=== PATIENT | female | born 1990 | race Two or more races ===

== ENCOUNTER 2016-08-14 17:01 | Emergency (ER) | payer MEDICAID, OTHER ==
[~2016-08-14] VITALS: Ht 154.9 cm; Wt 79.4 kg
[~2016-08-14 17:01] MED LIST: BACTRIM DS TAB1 EAC1 ORAL; BENADRYL25 M3 PO; BENADRYL25 MG PO; IBUPROFEN400 MG ORAL; IBUPROFEN600 MG PO; NKM; NORCO 10-325 T1 EACH ORAL; PENICILLIN V P500 MG PO; VICODIN 5-5001 EACH PO; ZYRTEC10 MG ORAL
[2016-08-14] MEDS ORDERED: PredniSONE 20mg tab ORAL ONE (17:30)
[2016-08-14] MEDS ORDERED: BENADRYL25 MG ORAL (17:48)
[2016-08-14] MEDS ORDERED: PREDNISONE20 MG ORAL (17:48)
[2016-08-14] MEDS ORDERED: KENALOG 0.5% CR15 GM APPLIC (17:48)
[2016-08-14 18:00] VITALS: BP 123/90
--- NOTE | 2016-08-14 20:43 | Emergency Room Report ---
History of Present Illness General Chief Complaint: Allergies Source: Patient Present Illness HPI The patient is a 25-year-old female presenting for possible allergic reaction. She states that she applied a sunscreen yesterday and then began to itch and on the areas that he was applied. She states that she noticed hives in those areas. She took Benadryl which did help. She denies having a reaction like this in the past. She denies any pain and denies shortness of breath. She denies other symptoms including N, V, F, chills Allergies: Coded Allergies: Shrimp (Verified Allergy, Intermediate, Itching, 09/20/12) PENICILLINS (Verified Adverse Reaction, Intermediate, Itching, 05/29/13) FACIAL SWELLING Patient History Past Medical History: see triage record Pertinent Family History: none Last Menstrual Period: 2 years ago Now: No Reviewed Nursing Documentation: PMH: Agreed, PSxH: Agreed Nursing Documentation-PMH Past Medical History: No Stated History Review of Systems All Other Systems: negative except mentioned in HPI Physical Exam Vital Signs Date Time Temp Pulse Resp B/P Pulse Ox O2 Delivery O2 Flow Rate FiO2 08/14/16 17:13 98.1 76 18 123/90 98 Room Air Sp02 EP Interpretation: reviewed, normal General Appearance: no apparent distress, alert, GCS 15, non-toxic Head: normocephalic, atraumatic Eyes: bilateral eye PERRL, bilateral eye normal inspection ENT: hearing grossly normal, normal pharynx, no angioedema, normal voice, uvula midline, moist mucus membranes Neck: full range of motion, supple/symm/no masses Respiratory: chest non-tender, lungs clear, normal breath sounds, no wheezing, speaking full sentences Cardiovascular #1: regular rate, rhythm, no edema Gastrointestinal: normal bowel sounds, non tender, soft, non-distended, no guarding, no rebound Musculoskeletal: back normal, gait/station normal, normal range of motion, non- tender Neurologic: alert, oriented x3, responsive, motor strength/tone normal, sensory intact, normal gait, speech normal Psychiatric: judgement/insight normal, memory normal, mood/affect normal, no suicidal/homicidal ideation Skin: rash - maculopapular rash of the face, neck, bilat arms, upper mid chest , and back Lymphatic: no adenopathy Medical Decision Making PA Attestation Dr. Mayen is my supervising physician. Patient management was discussed with my supervising physician Diagnostic Impression: Primary Impression: Contact dermatitis Qualified Codes: L25.9 - Unspecified contact dermatitis, unspecified cause ER Course The patient is a 25-year-old female presenting for possible allergic reaction Ddx considered include but not limited to insect bite, allergic reaction, contact dermatitis, eczema, cellulitis PE: vitals WNL. NAD No angioedema Lungs CTA bilat maculopapular rash of the face, neck, bilat arms, upper mid chest, and back only. Pt is given prednisone in the ER and will be DC'ed home with prednisone, Benadryl, and triamcinolone. ER precautions given Last Vital Signs Date Time Temp Pulse Resp B/P Pulse Ox O2 Delivery O2 Flow Rate FiO2 08/14/16 18:00 62 16 113/73 98 08/14/16 18:00 98.1 Room Air Status: improved Disposition: HOME, SELF-CARE Condition: Improved Scripts Triamcinolone Acet (Triamcinolone Acetonide) 15 Gm Cream..g. 15 GM APPLIC TID, #15 GM Prov: SEAN ALBARADO P.A. 08/14/16 Prednisone* (PREDNISONE*) 20 Mg Tablet 40 MG ORAL DAILY, #8 TAB Prov: MARTINANSEAN P.A. 08/14/16 Diphenhydramine Hcl* (BENADRYL*) 25 Mg Capsule 25 MG ORAL Q6H Y for Itching, #15 CAP Prov: TERZIANADRIANY P.A. 08/14/16 Referrals[facility] ([facility]P) Patient Instructions: Contact Dermatitis Additional Instructions: I discussed my findings with the patient. All questions and concerns have been answered. Treatment and medication compliance have been addressed. I advised the patient that they need to follow up with PMD in 3-5 days. Return to ED if symptoms worsen, new symptoms arise, or if needed for any reason. Patient verbalized understanding of discharge instructions. SEAN ALBARADO Aug 14, 2016 20:43
[2016-08-15] MEDS ORDERED: KENALOG 0.025%15 GM APPLIC (14:07)
== END 2016-08-14 18:00 | disposition home or self-care (01) ==
LOC: EMR 17:50
DX: L25.9 Unspecified contact dermatitis, unspecified cause (principal); Z88.0 Allergy status to penicillin; Z91.013 Allergy to seafood
CPT/HCPCS: 99284

== ENCOUNTER 2016-12-15 17:19 | Emergency (ER) | payer MEDICAID ==
[~2016-12-15] VITALS: Ht 157.5 cm; Wt 77.1 kg
[~2016-12-15 17:19] MED LIST changes: +BENADRYL25 MG ORAL; +KENALOG 0.025%15 GM APPLIC; +KENALOG 0.5% CR15 GM APPLIC; +PREDNISONE20 MG ORAL
[2016-12-15 17:29] VITALS: BP 105/67
[2016-12-15] MEDS ORDERED: PROMETHAZI6.25 MG/1 ORAL ×2 (17:52→18:37)
[2016-12-15] MEDS ORDERED: AMOXICILLIN500 MG ORAL (17:52)
[2016-12-15 17:55] VITALS: BP 111/71
[2016-12-15] MEDS ORDERED: ZITHROMAX250 MG ORAL ×2 (18:10→18:37)
--- NOTE | 2016-12-15 21:21 | Emergency Room Report ---
History of Present Illness General Chief Complaint: Upper Respiratory Illness Source: Patient Present Illness [facility] The patient is a 26-year-old female presenting for cough, sore throat, nasal congestion, and subjective fevers for the past week. She denies any known sick contacts recent travel. Pain is 8/10 dull ache to the back of the throat and does not radiate. Worse with swallowing. She denies any other symptoms Allergies: Coded Allergies: Shrimp (Verified Allergy, Intermediate, Itching, 09/20/12) PENICILLINS (Verified Adverse Reaction, Intermediate, Itching, 05/29/13) FACIAL SWELLING Patient History Past Medical History: see triage record Pertinent Family History: none Last Menstrual Period: 2 years ago Now: No Reviewed Nursing Documentation: PMH: Agreed, PSxH: Agreed Nursing Documentation-PMH Hx Gastrointestinal Problems: No - [place] Review of Systems All Other Systems: negative except mentioned in HPI Physical Exam Vital Signs Date Time Temp Pulse Resp B/P (MAP) Pulse Ox O2 Delivery O2 Flow Rate FiO2 12/15/16 17:23 97.9 82 16 105/67 98 Room Air Sp02 EP Interpretation: reviewed, normal General Appearance: no apparent distress, alert, GCS 15, non-toxic Head: normocephalic, atraumatic Eyes: bilateral eye normal inspection, bilateral eye PERRL ENT: hearing grossly normal, no angioedema, normal voice, uvula midline, tonsillar swelling, pharyngeal erythema, tonsillar exudate Neck: full range of motion, supple/symm/no masses Respiratory: chest non-tender, lungs clear, normal breath sounds, speaking full sentences Cardiovascular #1: regular rate, rhythm, no edema Musculoskeletal: back normal, gait/station normal, normal range of motion, non- tender Neurologic: alert, oriented x3, responsive, motor strength/tone normal, sensory intact, speech normal Psychiatric: judgement/insight normal, memory normal, mood/affect normal, no suicidal/homicidal ideation Skin: normal color, no rash, warm/dry, well hydrated Lymphatic: adenopathy Medical Decision Making PA Attestation Dr. Ceballos is my supervising physician. Patient management was discussed with my supervising physician Diagnostic Impression: Primary Impression: Pharyngitis, acute Qualified Codes: J02.9 - Acute pharyngitis, unspecified ER Course Pt is a 26 yo F presenting for URI symptoms Differential diagnosis include but not limited to pharyngitis, sinusitis, AOM, bronchitis, PNA Physical exam: Vitals within normal limits. Afebrile. No apparent distress HEENT exam: There is bilateral tonsillar edema, erythema, and exudate. Uvula midline. Moist mucous membranes. There is bilateral cervical lymphadenopathy. Lungs are clear to auscultation bilaterally Skin is warm and dry. No rash The patient will be discharged home with a prescription for azithromycin and is given ER precautions. Patient will followup with primary care Last Vital Signs Date Time Temp Pulse Resp B/P (MAP) Pulse Ox O2 Delivery O2 Flow Rate FiO2 12/15/16 17:55 97.9 86 20 111/71 100 Room Air Status: improved Disposition: HOME, SELF-CARE Condition: Improved Scripts Azithromycin* (ZITHROMAX*) 250 Mg Tablet 250 MG ORAL DAILY, #6 TAB 0 Refills Take two tables once daily for 1 day, then one tablet once daily for 4 days. Prov: SEAN ALBARADO 12/15/16 Promethazine Hcl (PROMETHAZINE HCL*) 6.25 Mg/5 Ml Syrup 5 ML ORAL Q8H, #120 ML 0 Refills Prov: SEAN ALBARADO 12/15/16 Referrals: [facility] (PCP) Patient Instructions: Upper Respiratory Infection, Adult Additional Instructions: I discussed my findings with the patient. All questions and concerns have been answered. Treatment and medication compliance have been addressed. I advised the patient that they need to follow up with PMD in 3-5 days. Return to ED if pain remains or worsens, cough worsens or remains, you notice blood in your sputum, you notice wheezing, you experience a fever, or if needed for any reason. Patient verbalized understanding of discharge instructions. SEAN ALBARADO Dec 15, 2016 21:21
== END 2016-12-15 17:55 | disposition home or self-care (01) ==
LOC: EMR 17:50
DX: J02.9 Acute pharyngitis, unspecified (principal); Z91.013 Allergy to seafood; Z88.0 Allergy status to penicillin
CPT/HCPCS: 99283

== ENCOUNTER 2017-02-07 15:25 | Emergency (ER) | payer MEDICAID ==
[~2017-02-07] VITALS: Ht 157.5 cm; Wt 76.2 kg
[~2017-02-07 15:25] MED LIST changes: +AMOXICILLIN500 MG ORAL; +PROMETHAZI6.25 MG/1 ORAL; +ZITHROMAX250 MG ORAL
[2017-02-07] MEDS ORDERED: PREDNISONE20 MG ORAL (17:10)
[2017-02-07] MEDS ORDERED: PROAIR HFA8.5 GM INH (17:10)
[2017-02-07] MEDS ORDERED: BENADRYL25 MG ORAL (17:10)
[2017-02-07 17:52] VITALS: BP 131/82
--- NOTE | 2017-02-07 21:52 | Emergency Room Report ---
History of Present Illness General Chief Complaint: Allergic Reaction Source: Patient Present Illness HPI The patient is a 26-year-old female presenting for possible allergic reaction. She states that she has an allergy to shrimp and penicillin. She states that she had a seafood soup 2 days prior and is unsure if it had shrimp products. She began to develop itching as well as feelings of shortness of breath. She states that she has an EpiPen at home but did not use it. Symptoms have since improved. She took Zyrtec at home. She denies any other symptoms including nausea, vomiting, fever, chills, difficulty breathing, difficulty swallowing, facial swelling, diarrhea, chest pain or any other symptoms Allergies: Coded Allergies: Shrimp (Verified Allergy, Intermediate, Itching, 09/20/12) PENICILLINS (Verified Adverse Reaction, Intermediate, Itching, 05/29/13) FACIAL SWELLING Patient History Past Medical History: see triage record Pertinent Family History: none Last Menstrual Period: Two years ago "adenoma" W/U in progress Now: No Reviewed Nursing Documentation: PMH: Agreed, PSxH: Agreed Nursing Documentation-PM Past Medical History: No Stated History Hx Gastrointestinal Problems: No - [place] Review of Systems All Other Systems: negative except mentioned in HPI Physical Exam Vital Signs Date Time Temp Pulse Resp B/P (MAP) Pulse Ox O2 Delivery O2 Flow Rate FiO2 02/07/17 15:36 98.1 86 16 132/90 99 Room Air Sp02 EP Interpretation: reviewed, normal General Appearance: no apparent distress, alert, GCS 15, non-toxic Head: normocephalic, atraumatic Eyes: bilateral eye normal inspection, bilateral eye PERRL ENT: hearing grossly normal, normal pharynx, no angioedema, normal voice Neck: full range of motion, supple/symm/no masses Respiratory: chest non-tender, normal breath sounds, no respiratory distress, no accessory muscle use, speaking full sentences, wheezing - bilat Cardiovascular #1: regular rate, rhythm, no edema Gastrointestinal: normal bowel sounds, non tender, soft, non-distended, no guarding, no rebound Musculoskeletal: back normal, gait/station normal, normal range of motion, non- tender Neurologic: alert, oriented x3, responsive, motor strength/tone normal, sensory intact, speech normal Psychiatric: judgement/insight normal, memory normal, mood/affect normal, no suicidal/homicidal ideation Skin: normal color, no rash, warm/dry, well hydrated Lymphatic: no adenopathy Medical Decision Making PA Attestation Dr. Ceballos is my supervising physician. Patient management was discussed with my supervising physician Diagnostic Impression: Primary Impression: Allergic reaction Qualified Codes: T78.40XA - Allergy, unspecified, initial encounter ER Course The patient is a 26-year-old female presenting for possible allergic reaction. Differential diagnoses considered but not limited to: Food allergy, anaphylaxis , , among others Physical exam: Vitals are stable and within normal limits. No apparent distress HEENT exam is unremarkable. No angioedema RRR Lungs: There is bilateral wheezing. No respiratory distress. The patient is given prednisone and Benadryl. She states that she is feeling much better She will be discharged home with prescription for albuterol, Benadryl, and prednisone. She will followup with her primary doctor. She is given strict precautions to return Laboratory Tests Test 02/07/17 16:23 Urine HCG, Qualitative Negative Lab Results Impression preg: neg Last Vital Signs Date Time Temp Pulse Resp B/P (MAP) Pulse Ox O2 Delivery O2 Flow Rate FiO2 02/07/17 17:52 62 16 131/82 100 Room Air 02/07/17 15:36 98.1 Status: improved Disposition: HOME, SELF-CARE Condition: Improved Scripts Diphenhydramine Hcl* (BENADRYL*) 25 Mg Capsule 25 MG ORAL Q6H Y for Itching, #20 CAP Prov: TERZIAN,SEAN P.A. 02/07/17 Prednisone* (PREDNISONE*) 20 Mg Tablet 40 MG ORAL DAILY, #6 TAB Prov: TERZIAN,SEAN P.A. 02/07/17 Albuterol Sulfate* (PROAIR HFA*) 8.5 Gm Hfa.aer.ad 2 PUFFS INH Q6H, #8.5 GM 0 Refills Prov: TERZIAN,SEAN P.A. 02/07/17 Referrals: [facility] ([facility]P) Patient Instructions: Allergies Additional Instructions: I discussed my findings with the patient. All questions and concerns have been answered. Treatment and medication compliance have been addressed. I advised the patient that they need to follow up with PMD in 3-5 days. Return to ED if symptoms worsen, new symptoms arise, or if needed for any reason. Patient verbalized understanding of discharge instructions. SEAN ALBARADO Feb 07, 2017 21:52
== END 2017-02-07 17:52 | disposition home or self-care (01) ==
LOC: EMR 16:12
DX: T78.40XA Allergy, unspecified, initial encounter (principal); X58.XXXA Exposure to other specified factors, initial encounter; L29.9 Pruritus, unspecified; R06.02 Shortness of breath; Z88.0 Allergy status to penicillin; Z91.013 Allergy to seafood
CPT/HCPCS: 81025; 99284; J7512

== ENCOUNTER 2017-06-01 17:56 | Emergency (ER) | payer MEDICAID ==
[~2017-06-01] VITALS: Ht 160 cm; Wt 79.4 kg
[~2017-06-01 17:56] MED LIST changes: +PROAIR HFA8.5 GM INH
[2017-06-01] MEDS ORDERED: Lidocaine 2% Visc 15ml soln ORAL ONE (18:15)
--- NOTE | 2017-06-01 18:16 | Emergency Room Report ---
History of Present Illness General Chief Complaint: General Complaint Source: Patient, Medical Record Present Illness HPI 26 yo male patient presents to ER complaining of sore throat x2 days. Reports symptoms began after drinking a soda. Reports concern that she is "allergic". Reports dry throat worse at night. Reports pain with swallowing, reports able to eat food and drink. Denies voice changes or drooling. Denies contacts with similar symptoms. Denies fever, chest pain, cough, SOB. Denies abdominal pain, rash, diarrhea, nausea, vomiting. Denies neck pain. Denies swallowing FB. Allergies: Coded Allergies: Shrimp (Verified Allergy, Intermediate, Itching, 09/20/12) PENICILLINS (Verified Adverse Reaction, Intermediate, Itching, 05/29/13) FACIAL SWELLING Patient History Past Medical History: see triage record Reviewed Nursing Documentation: PMH: Agreed; PSxH: Agreed Nursing Documentation-PMH Hx Gastrointestinal Problems: No - [place] Review of Systems All Other Systems: negative except mentioned in HPI Physical Exam Vital Signs Date Time Temp Pulse Resp B/P (MAP) Pulse Ox O2 Delivery O2 Flow Rate FiO2 06/01/17 18:02 98.3 81 18 129/89 95 Room Air 98.2 Sp02 EP Interpretation: reviewed, normal General Appearance: well appearing, no apparent distress, alert, GCS 15, non- toxic Head: normocephalic, atraumatic Eyes: bilateral eye normal inspection, bilateral eye PERRL ENT: hearing grossly normal, normal pharynx, no angioedema, normal voice, TMs + canals normal, uvula midline, moist mucus membranes, other - no uvula deviation, no exudates, no phayrnegal erythema Neck: full range of motion, no bony tend, other - no tenderness laterally Respiratory: lungs clear, normal breath sounds, no rhonchi, no respiratory distress, no accessory muscle use, no wheezing, speaking full sentences, other - no stridor Cardiovascular #1: regular rate, rhythm, no edema Musculoskeletal: back normal, digits/nails normal, gait/station normal, normal range of motion, non-tender Neurologic: alert, oriented x3, responsive, motor strength/tone normal, sensory intact Psychiatric: mood/affect normal Skin: no rash Lymphatic: no adenopathy Medical Decision Making PA Attestation Dr. Swift is my supervising Physician whom patient management has been discussed with. Diagnostic Impression: Primary Impression: Sore throat ER Course Pt presents to ED c/o sore throat. DDX considered but are not limited to pharyngitis, laryngitis, URI, peritonsillar abscess, tonsillitis. Low suspicion for peritonsillar abscess, no neck stiffness, no uvular deviation , no hot potato voice, no stridor. VITAL SIGNS are WNL, patient is afebrile. Ordered soft tissue neck xray and medication. ER COURSE: -Dexamethasone -Viscous Lidocaine PE benign, no tonsillar exudates, no pharyngeal erythema. Soft tissue neck x-ray ordered, results show no soft tissue swelling in retropharyngeal space per the preliminary reading. Xray reviewed with Dr. Swift, agrees with findings. Results discussed with patient. Patient reports feeling better following administration of medication. Informed patient of possible causes of sore throat. Allergic reaction unlikely, possible viral or weather related. Avoid dry mouth, drink plenty of fluids. Patient reports agreement and understanding. Return to ER for new or worsening of symptoms. DISCHARGE: Salt water gargles Rx provided for Tylenol for pain and fever symptoms Drink plenty of water. At this time pt is stable for d/c to home. Patient is resting comfortably, in no acute distress, nontoxic appearing, talking without difficulty. Will provide with patient care instructions and any necessary prescriptions. Patient to take medication as instructed. Care plan and follow-up instructions provided. Patient questions asked and answered. Patient instructed to follow-up with primary care provider in 3 - 5 days. ER precautions given. Patient instructed to return to ER immediately for any new or worsening of symptoms. Other X-Ray Diagnostic Results Other X-Ray Diagnostic Results : X-Ray ordered: cervical neck soft tissue # of Views/Limited Vs Complete: 2 View Indication: Pain EP Interpretation: Yes CIARA Xray: Interpretation reviewed, by supervising MD, and agrees with findings. Interpretation: no dislocation, no soft tissue swelling, no fractures Impression: No acute disease CIARA Crowder PA-C Last Vital Signs Date Time Temp Pulse Resp B/P (MAP) Pulse Ox O2 Delivery O2 Flow Rate FiO2 06/01/17 18:02 98.3 81 18 129/89 95 Room Air 98.2 Disposition: HOME, SELF-CARE Condition: Stable Scripts Acetaminophen* (TYLENOL EXTRA STRENGTH*) 500 Mg Tablet 500 MG ORAL Q8H PRN for Prn Headache/Temp > 101, #30 TAB 0 Refills Prov: Artur Crowder 06/01/17 Patient Instructions: Sore Throat, [id number] Additional Instructions: Followup with primary care provider in 3 -5 days. Salt water gargles Rx provided for Tylenol for pain and fever symptoms Drink plenty of water. Take medications as directed. Patient questions asked and answered. ER precautions given, patient instructed to return to ER immediately for any new or worsening of symptoms. Artur Crowder Jun 01, 2017 18:16
[2017-06-01 18:19] VITALS: BP 124/86
[2017-06-01] MEDS ORDERED: Dexamethasone 4mg/ml vial IM ONE (18:30)
[2017-06-01] MEDS ORDERED: TYLENOL EXTRA500 MG ORAL (19:10)
[2017-06-01 19:25] VITALS: BP 124/86
--- NOTE | 2017-06-02 11:03 | Diagnostic Imaging Report ---
Indication: Neck pain Comparison: None Findings: Two views of the neck performed. No soft tissue swelling is appreciated. No radiopaque foreign body. Minimal anterolisthesis present at C3-4 incidentally noted with slight kyphosis. This may be due to muscle spasm. If there is a clinical history of recent neck injury, recommend further evaluation. IMPRESSION: Soft tissues are unremarkable. Incidental, mild anterolistheses at C3-4 noted. Consider follow-up with flexion-extension views or MRI to evaluate for ligament injury if this is clinically warranted.
== END 2017-06-01 19:25 | disposition home or self-care (01) ==
LOC: EMR 18:20
DX: R07.0 Pain in throat (principal); Z88.0 Allergy status to penicillin; Z91.013 Allergy to seafood
CPT/HCPCS: 70360; 96372; 99283; J1100

== ENCOUNTER 2018-05-15 17:33 | Emergency (ER) | payer MEDICAID ==
[~2018-05-15] VITALS: Ht 157.5 cm; Wt 77.1 kg
[~2018-05-15 17:33] MED LIST changes: +TYLENOL EXTRA500 MG ORAL
[2018-05-15 17:48] VITALS: BP 123/85
--- NOTE | 2018-05-15 17:54 | NUR ---
ED Nurse Note: Patient walked into ED from home c/o right ear pain 08/31 patient reports it has been there on and off for 5 months. a/o x4, ambulatory.
--- NOTE | 2018-05-15 18:22 | Emergency Room Report ---
History of Present Illness General Chief Complaint: Earache Source: Patient Present Illness HPI 27-year-old female with no significant past medical history her complaining of pain in the right ureter and right tooth for 5 months. Patient is rating the pain 3 out of 10 intermittent. Has not seen her primary care provider or dentist for this issue. Patient denies any pain in the emergency room today. Denies any pain radiation and has not taken any medication to alleviate pain denies all other URI symptoms denies fever chills tingling and numbness. Allergies: Coded Allergies: Shrimp (Verified Allergy, Intermediate, Itching, 09/20/12) PENICILLINS (Verified Adverse Reaction, Intermediate, Itching, 05/29/13) FACIAL SWELLING Patient History Past Medical History: see triage record Past Surgical History: none Now: No - Unable to remember LMP Reviewed Nursing Documentation: PMH: Agreed; PSxH: Agreed Nursing Documentation-PMH Past Medical History: No Stated History Hx Gastrointestinal Problems: No - [place] Review of Systems All Other Systems: negative except mentioned in HPI Physical Exam Vital Signs Date Time Temp Pulse Resp B/P (MAP) Pulse Ox O2 Delivery O2 Flow Rate FiO2 05/15/18 17:48 98.4 75 20 123/85 95 Room Air Sp02 EP Interpretation: reviewed General Appearance: normal inspection, well appearing, alert, GCS 15 Head: normocephalic ENT: normal ENT inspection, hearing grossly normal, normal pharynx Neck: normal inspection, full range of motion, supple Respiratory: normal inspection, chest non-tender, no wheezing Cardiovascular #1: normal inspection, regular rate, rhythm, no murmur Gastrointestinal: normal inspection, non tender, soft Musculoskeletal: normal inspection, back normal Neurologic: normal inspection, alert Psychiatric: normal inspection, judgement/insight normal Skin: normal inspection, normal color, no rash Lymphatic: normal inspection, no adenopathy Medical Decision Making PA Attestation Diagnoses and treatment plans were discussed with my supervising physician Dr. Ya Diagnostic Impression: Primary Impression: Otalgia Additional Impression: Toothache ER Course 27-year-old female with no significant past medical history her complaining of pain in the right ureter and right tooth for 5 months. Patient is rating the pain 3 out of 10 intermittent. Has not seen her primary care provider or dentist for this issue. Patient denies any pain in the emergency room today. Denies any pain radiation and has not taken any medication to alleviate pain denies all other URI symptoms denies fever chills tingling and numbness. Ddx considered but are not limited to OM, OE, otalgia unspecified Vital signs: are WNL, pt. is afebrile H&PE are most consistent with otalgia secondary to tooth abnormality ORDERS:ibuprofen ED INTERVENTIONS: None required at this time. DISCHARGE: At this time pt. is stable for d/c to home. Will provide printed patient care instructions, and any necessary prescriptions. Care plan and follow up instructions have been discussed with the patient prior to discharge. f/u with dentist and ENT Last Vital Signs Date Time Temp Pulse Resp B/P (MAP) Pulse Ox O2 Delivery O2 Flow Rate FiO2 05/15/18 17:48 98.4 75 20 123/85 95 Room Air Disposition: HOME, SELF-CARE Condition: Stable Scripts Ibuprofen* (MOTRIN*) 600 Mg Tablet 600 MG ORAL Q8H PRN for For Pain, #30 TAB 0 Refills Prov: Germania Fragoso 05/15/18 Patient Instructions: Dental Pain, [id number], Earache Additional Instructions: secondary to tooth pain. see dentist and ENT Germania Fragoso May 15, 2018 18:22
[2018-05-15] MEDS ORDERED: IBUPROFEN600 MG ORAL (18:23)
[2018-05-15 18:38] VITALS: BP 123/85
--- NOTE | 2018-05-15 18:39 | NUR ---
ER DISCHARGE NOTE: Patient is cleared to be discharged per ERMD, pt is aox4, on room air, with stable vital signs. pt was given dc and prescription instructions, pt was able to verbalize understanding, pt id band removed without complications. pt is able to ambulate with steady gait. pt took all belongings.
== END 2018-05-15 18:38 | disposition home or self-care (01) ==
LOC: EMR 18:34
DX: H92.01 Otalgia, right ear (principal); K08.89 Other specified disorders of teeth and supporting structures; Z88.0 Allergy status to penicillin; Z91.013 Allergy to seafood
CPT/HCPCS: 99282

== ENCOUNTER 2018-05-20 16:19 | Emergency (ER) | payer MEDICAID ==
[~2018-05-20] VITALS: Ht 157.5 cm; Wt 77.1 kg
[~2018-05-20 16:19] MED LIST changes: +IBUPROFEN600 MG ORAL
[2018-05-20 16:34] VITALS: BP 124/87
[2018-05-20] MEDS ORDERED: PEPCID AC20 M2 PO (16:46)
[2018-05-20] MEDS ORDERED: TYLENOL EXTRA500 MG ORAL (16:46)
--- NOTE | 2018-05-20 16:46 | Emergency Room Report ---
History of Present Illness General Chief Complaint: Sore Throat Source: Patient Present Illness HPI 27-year-old female patient presents the ER complaining of sore throat and diarrhea. Reports sore throat has been present for the past 4 days. Reports acid reflux symptoms during this time. Reports mild epigastric pain. Denies vomiting. Denies fever, chest pain, shortness of breath. Denies lower abdominal pain. Also complaining of diarrhea. States is watery. Denies recent travel outside the country. Denies blood in diarrhea. Reports symptoms of diarrhea began yesterday after eating shellfish. 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 States his been taking Motrin for relief of symptoms. Denies difficulty breathing. Denies shortness of breath. Denies dysuria, hematuria. Reports history of acid reflux however was never been diagnosed. Allergies: Coded Allergies: Shrimp (Verified Allergy, Intermediate, Itching, 09/20/12) PENICILLINS (Verified Adverse Reaction, Intermediate, Itching, 05/29/13) FACIAL SWELLING Patient History Past Medical History: see triage record Last Menstrual Period: 2 months ago Now: No Reviewed Nursing Documentation: PMH: Agreed; PSxH: Agreed Nursing Documentation-PMH Past Medical History: No Stated History Hx Gastrointestinal Problems: No - amennorhea Review of Systems All Other Systems: negative except mentioned in HPI Physical Exam Vital Signs Date Time Temp Pulse Resp B/P (MAP) Pulse Ox O2 Delivery O2 Flow Rate FiO2 05/20/18 16:27 98.1 67 16 124/87 97 Room Air Sp02 EP Interpretation: reviewed, normal General Appearance: well appearing, no apparent distress, alert, GCS 15, non- toxic Head: normocephalic, atraumatic Eyes: bilateral eye normal inspection, bilateral eye PERRL ENT: hearing grossly normal, normal pharynx, no angioedema, normal voice, TMs + canals normal, uvula midline, moist mucus membranes, other - No exudates, no erythema, no swelling Neck: full range of motion, no meningismus, no bony tend Respiratory: lungs clear, normal breath sounds, no rhonchi, no respiratory distress, no accessory muscle use, no wheezing, speaking full sentences Cardiovascular #1: regular rate, rhythm, no edema Gastrointestinal: normal bowel sounds, non tender, soft, no mass, non-distended , no guarding, no rebound, other - Negative Tan sign, negative Rovsing, negative heel strike Musculoskeletal: back normal, digits/nails normal, gait/station normal, normal range of motion, non-tender Neurologic: alert, oriented x3, responsive, motor strength/tone normal, sensory intact Psychiatric: mood/affect normal Skin: no rash Medical Decision Making PA Attestation Dr. Mccann is my supervising Physician whom patient management has been discussed with. Diagnostic Impression: Primary Impression: Acid reflux Additional Impression: Diarrhea ER Course Pt. presents to the ED c/o sore throat and diarrhea. Ddx considered but are not limited to esophagitis, influenza, GERD, vomiting, [place] , gastritis, enteritis, pharyngitis, tonsillitis, peritonsillar abscess, cholecystitis, cholelithiasis, . Vital signs: are WNL, pt. is afebrile ER COURSE: Provided with viscous lidocaine for sore throat. Physcial exam benign. Symptoms consistent with acid reflux. Followup with GI specialist. No abdominal TTP, negative Rovsing, normal bowel sounds. Negative tan sign, no jaundice, no vomiting, low suspicion for cholecystitis or cholelithiasis. Patient informed of likely viral cause of symptoms. No fever, no blood in stool, no recent travel or hospitalizations, does not require abx treatment at this time. No signs of dehydration, moist mucus membranes, cap refil <2seconds, normal skin turgor. Patient reports eating and drinking normally. ER precautions given. DISCHARGE: At this time pt is stable for d/c to home. Patient is resting, in no acute distress, nontoxic appearing. Will provide with patient care instructions and any necessary prescriptions. Patient to take medication as instructed. Care plan and follow-up instructions provided. Patient questions asked and answered. Patient instructed to follow-up with primary care provider in 3- 5 days to discuss further treatment and referral to GI specialist for evaluation. Patient states understanding and agreement to treatment plan ER precautions given. Patient instructed to return to ER immediately for any new or worsening of symptoms - Please note that this Emergency Department Report was dictated using [employer] tech technology software, occasionally this can lead to erroneous entry secondary to interpretation by the dictation equipment. Last Vital Signs Date Time Temp Pulse Resp B/P (MAP) Pulse Ox O2 Delivery O2 Flow Rate FiO2 05/20/18 16:34 98.1 77 16 124/87 97 Room Air Status: improved Disposition: HOME, SELF-CARE Condition: Stable Scripts Acetaminophen* (TYLENOL EXTRA STRENGTH*) 500 Mg Tablet 500 MG ORAL Q8H PRN for Prn Headache/Temp > 101, #30 TAB 0 Refills Prov: Artur Crowder 05/20/18 Famotidine (PEPCID AC) 20 Mg Tablet 20 MG PO DAILY for 30 Days, #30 TAB Prov: Artur Crowder 05/20/18 Patient Instructions: Diarrhea, Adult, [id number], Food Choices for Gastroesophageal Reflux Disease, Adult, Ihck-dw-[id number], Food Choices to Help Relieve Diarrhea, Adult, Gastroesophageal Reflux Disease, Adult, [id number], Sore Throat Additional Instructions: Followup with primary care provider in 3 -5 days for further treatment and referral to GI. Discuss testing for H.pylori. Keep food journal of foods eaten and times of symptom onset. Take medications as directed. Patient questions asked and answered. Drink fluids as tolerated to prevent dehydration. Take Tylenol for pain symptoms. Avoid spicy foods, avoid dairy, avoid alcohol. Do not eat late night meals. Elevate head of bed when sleeping. Salt water gargles 5-6 times a day for sore throat. ER precautions given, patient instructed to return to ER immediately for any new or worsening of symptoms including but not limited to chest pain, SOB, abdominal pain, blood in vomit. Artur Crowder May 20, 2018 16:46
[2018-05-20 16:54] VITALS: BP 114/82
[2018-05-20] MEDS ORDERED: Lidocaine 2% Visc 15ml soln ORAL ONE (17:00)
== END 2018-05-20 16:56 | disposition home or self-care (01) ==
LOC: EMR 16:45
DX: K21.9 Gastro-esophageal reflux disease without esophagitis (principal); R19.7 Diarrhea, unspecified; Z88.0 Allergy status to penicillin
CPT/HCPCS: 99282

== ENCOUNTER 2018-09-11 12:39 | Emergency (ER) | payer MEDICAID ==
[~2018-09-11] VITALS: Ht 157.5 cm; Wt 77.1 kg
[~2018-09-11 12:39] MED LIST changes: +PEPCID AC20 M2 PO
[2018-09-11 12:49] VITALS: BP 105/70
--- NOTE | 2018-09-11 12:49 | NUR ---
ED Nurse Note: Patient walked in to ER c/o dizziness since she started taking stress relieving OTC yesterday. Patient aao x4 and ambulatory. skin clean and intact. calm and cooperative. pt denied N/V/D or chest pain. no acute distress noted. pt is in gown and on roving frame tender. vss as documented.
--- NOTE | 2018-09-11 12:56 | NUR ---
ED Nurse Note: pt stayed in bathroom for awhile. Checked the pt in bathroom. pt said she is ok in there.
[2018-09-11] MEDS ORDERED: Meclizine 25mg tab ORAL ONE (13:15)
--- NOTE | 2018-09-11 13:22 | Emergency Room Report ---
History of Present Illness General Chief Complaint: Dizziness Source: Patient Present Illness HPI 27-year-old female presents with lightheadedness after taking ashwagandha supplement for stress, she endorses feeling palpitations, no shortness of breath patient felt like she is going to pass out, no nausea no vomiting, no abdominal pain, no dysuria, patient was worried after taking the medication and presents to the emergency room for evaluation, she states she is feeling almost back to baseline. Her lightheadedness is aggravated by the supplement, alleviated by not taking it, her symptoms were generalized. Allergies: Coded Allergies: Shrimp (Verified Allergy, Intermediate, Itching, 09/20/12) PENICILLINS (Verified Adverse Reaction, Intermediate, Itching, 05/29/13) FACIAL SWELLING Patient History Past Medical History: see triage record Reviewed Nursing Documentation: PMH: Agreed; PSxH: Agreed Nursing Documentation-PMH Hx Gastrointestinal Problems: No - amennorhea Review of Systems All Other Systems: negative except mentioned in HPI Physical Exam Vital Signs Date Time Temp Pulse Resp B/P (MAP) Pulse Ox O2 Delivery O2 Flow Rate FiO2 09/11/18 12:44 98.1 68 19 105/70 (82) 97 Room Air Sp02 EP Interpretation: reviewed, normal General Appearance: well appearing, no apparent distress, alert Head: normocephalic, atraumatic Eyes: bilateral eye PERRL, bilateral eye EOMI ENT: uvula midline, moist mucus membranes Neck: supple, thyroid normal, supple/symm/no masses Respiratory: lungs clear, no respiratory distress, no retraction, no accessory muscle use Cardiovascular #1: normal peripheral pulses, regular rate, rhythm, no edema, no gallop, no murmur Gastrointestinal: non tender, soft, no guarding, no rebound Musculoskeletal: normal inspection Neurologic: alert, oriented x3 Psychiatric: mood/affect normal Skin: no rash, warm/dry Medical Decision Making Diagnostic Impression: Primary Impression: Side effect of drug ER Course 27-year-old female presents with most likely a drug side effect, patient asymptomatic at this moment, EKG negative, patient slowly back to baseline, will disposition patient home with return precautions. Patient counseled not to take supplements that are not regulated. return precautions discussed EKG Diagnostic Results EKG Time: 13:14 EP Interpretation: NSR rate 64, qtc 422, no acute st elevations Rate: normal Rhythm: NSR ST Segments: no acute changes ASA given to the pt in ED: No Rhythm Strip Diag. Results Rhythm Strip Time: 13:41 EP Interpretation: yes Rate: 75 Rhythm: NSR, no PVC's, no ectopy Last Vital Signs Date Time Temp Pulse Resp B/P (MAP) Pulse Ox O2 Delivery O2 Flow Rate FiO2 09/11/18 12:49 98.1 68 19 105/70 97 Room Air Disposition: HOME, SELF-CARE Condition: Stable Referrals: [facility] Patient Instructions: Near-Syncope, [id number], Polypharmacy Problems, Easy- to-Read Additional Instructions: The patient was provided with discharge instructions, notified to follow-up with a primary care doctor and or specialist in the next 24-48 hours, and to return to the ED if they have worsening of their symptoms. Please note that this report is being documented using [employer] technology. This can lead to erroneous entry secondary to incorrect interpretation by the dictating instrument. Darvin Woodruff M.D. Sep 11, 2018 13:22
[2018-09-11 13:59] VITALS: BP 112/78
--- NOTE | 2018-09-11 14:00 | NUR ---
ER DISCHARGE NOTE: Patient is cleared to be discharged per ERMD, pt is aox4, on room air, with stable vital signs. pt was given dc instructions, pt was able to verbalize understanding, pt id band removed. pt is able to ambulate with steady gait. pt took all belongings.
--- NOTE | 2018-09-12 21:05 | Cardiology Report ---
APPROVED REPORT EKG Measurement Heart [id number] ID [id number] Normal sinus rhythm with sinus arrhythmia Normal ECG
== END 2018-09-11 14:00 | disposition home or self-care (01) ==
LOC: EMR 13:22
DX: T50.995A Adverse effect of other drugs, medicaments and biological substances, initial encounter (principal); R00.2 Palpitations; Z88.0 Allergy status to penicillin; Z91.013 Allergy to seafood; X58.XXXA Exposure to other specified factors, initial encounter; Y92.9 Unspecified place or not applicable
CPT/HCPCS: 81025; 93005; 99283

== ENCOUNTER 2018-11-25 15:05 | Emergency (ER) | payer MEDICAID ==
[~2018-11-25] VITALS: Ht 157.5 cm; Wt 76.7 kg
[2018-11-25 15:20] VITALS: BP 138/94
--- NOTE | 2018-11-25 15:20 | NUR ---
ED Nurse Note: Pt is AAOX4, VSS, with no sign of acute distress. Pt came in due to feeling jittery and very light dizziness after drinking ron and turmeric an hour ago.
--- NOTE | 2018-11-25 16:08 | Emergency Room Report ---
History of Present Illness General Chief Complaint: General Complaint Source: Patient Present Illness HPI 28-year-old female presents to the emergency department for evaluation after acute onset of jitteriness and feeling mildly SOB and somewhat lightheaded after drinking a large glass of ron and tumeric on an empty stomach. She denies CP or palpitations. She denies visual changes, denies headache, denies syncope, and she denies trauma or fall. Patient denies hot flashes, fevers or chills, neck pain or stiffness. Patient states that her symptoms have now resolved upon arrival to the emergency department. 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 Patient states she is otherwise healthy. No other aggravating or relieving factors at this time. She denies recent travel. She denies and state she is currently on her cycle. Allergies: Coded Allergies: Shrimp (Verified Allergy, Intermediate, Itching, 09/20/12) PENICILLINS (Verified Adverse Reaction, Intermediate, Itching, 05/29/13) FACIAL SWELLING Patient History Past Medical History: see triage record Past Surgical History: none Pertinent Family History: none Last Menstrual Period: amenorrhea Now: No Reviewed Nursing Documentation: PMH: Agreed; PSxH: Agreed Nursing Documentation-PMH Past Medical History: No History, Except For Hx Gastrointestinal Problems: No - amennorhea Review of Systems All Other Systems: negative except mentioned in HPI Physical Exam Vital Signs Date Time Temp Pulse Resp B/P (MAP) Pulse Ox O2 Delivery O2 Flow Rate FiO2 11/25/18 15:17 98.6 66 18 138/94 (109) 96 Room Air Sp02 EP Interpretation: reviewed, normal General Appearance: no apparent distress, alert, GCS 15, non-toxic Head: normocephalic, atraumatic Eyes: bilateral eye normal inspection, bilateral eye PERRL ENT: hearing grossly normal, normal voice Neck: full range of motion, no meningismus Respiratory: chest non-tender, lungs clear, normal breath sounds, speaking full sentences Cardiovascular #1: normal inspection, regular rate, rhythm Gastrointestinal: normal bowel sounds, non tender, soft, non-distended, no guarding Musculoskeletal: back normal, gait/station normal, normal range of motion, non- tender Neurologic: alert, oriented x3, responsive, motor strength/tone normal, sensory intact, normal gait, speech normal, other - no tremor visible, grossly normal Psychiatric: judgement/insight normal Skin: no rash Lymphatic: no adenopathy Medical Decision Making PA Attestation Dr. Loving is my supervising Physician whom patient management has been discussed with. Diagnostic Impression: Primary Impression: Jittery feeling ER Course 28-year-old female presents to the emergency department for evaluation after acute onset of jitteriness and feeling mildly SOB and somewhat lightheaded after drinking a large glass of ron and tumeric on an empty stomach. She denies CP or palpitations. She denies visual changes, denies headache, denies syncope, and she denies trauma or fall. Patient denies hot flashes, fevers or chills, neck pain or stiffness. Patient states that her symptoms have now resolved upon arrival to the emergency department. 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 Patient states she is otherwise healthy. No other aggravating or relieving factors at this time. She denies recent travel. She denies and state she is currently on her cycle. Ddx considered but are not limited to homeopathic medication side effect, anxiety, [place], PE, asthma, thyroid storm, hyperthyroid, EPS Vital signs: are WNL, pt. is afebrile H&PE are most consistent with normal MSE, pt. NAD, non-toxic in appearance. not in respiratory distress. ORDERS: none required at this time, the diagnosis is clinical ED INTERVENTIONS: -none required at this time. -I do not identify an emergent condition at this time. With current presentation , pt. is stable for close outpatient follow up and conservative treatment. D/ w pt. to return promptly to ED with worsening or new symptoms.- Pt. verbalizes' understanding and agreement with proposed treatment plan. DISCHARGE: At this time pt. is stable for d/c to home. Will provide printed patient care instructions, and any necessary prescriptions. Care plan and follow up instructions have been discussed with the patient prior to discharge. EKG Diagnostic Results Rate: normal - 99 bpm Rhythm: NSR ST Segments: no acute changes ASA given to the pt in ED: No PA Scribe Text This Interpretation was scribed by CIARA Acosta. Last Vital Signs Date Time Temp Pulse Resp B/P (MAP) Pulse Ox O2 Delivery O2 Flow Rate FiO2 11/25/18 15:17 98.6 66 18 138/94 (109) 96 Room Air Status: improved Disposition: HOME, SELF-CARE Condition: Stable Patient Instructions: Medical Screening Exam Additional Instructions: Take medications as directed. Follow up with a Primary Care Provider in 3-5 days, even if your symptoms have resolved. --Please review list of primary care clinics, if you do not already have a primary care provider Return sooner to ED if new symptoms occur, or current symptoms become worse. - Please note that this Emergency Department Report was dictated using [employer] technology software, occasionally this can lead to erroneous entry secondary to interpretation by the dictation equipment. Yas Acosta Nov 25, 2018 16:08
[2018-11-25 17:07] VITALS: BP 131/89
--- NOTE | 2018-11-25 17:07 | NUR ---
ER DISCHARGE NOTE: Patient is cleared to be discharged per ERMD, pt is aox4, on room air, with stable vital signs. pt was given dc and prescription instructions, pt was able to verbalize understanding, pt id band and iv site removed without complications. pt is able to ambulate with steady gait. pt took all belongings. Pt left in stable with no other issues to address.
--- NOTE | 2018-11-29 14:26 | Cardiology Report ---
APPROVED REPORT EKG Measurement Heart [id number] Normal sinus rhythm Normal ECG
== END 2018-11-25 17:07 | disposition home or self-care (01) ==
LOC: EMR 16:10
DX: R06.02 Shortness of breath (principal); Z88.0 Allergy status to penicillin; Z91.013 Allergy to seafood
CPT/HCPCS: 93005; Z7502; 99282

== ENCOUNTER 2019-03-25 22:52 | Emergency (ER) | payer MEDICAID ==
[~2019-03-25] VITALS: Ht 157.5 cm; Wt 76.7 kg
[2019-03-25 23:02] VITALS: BP 127/83
--- NOTE | 2019-03-25 23:02 | NUR ---
ED Nurse Note: Pt walked in c/o tightness in throat, itchiness, swelling in her eyes, painful swallowing x3 hrs ago. Pt stated she might have ate food with shrimp or shrimp extract and has tightiness in throat. Not in any distress. No SOB. No hives present.
--- NOTE | 2019-03-25 23:07 | NUR ---
ED Nurse Note: ERMD at bedside.
[2019-03-25] MEDS ORDERED: EPIPEN 2-P0.3 MG/0.3 IM (23:11)
--- NOTE | 2019-03-25 23:11 | Emergency Room Report ---
History of Present Illness General Chief Complaint: Allergies Source: Patient Present Illness HPI 28-year-old female had Lao food 3 hours prior to arrival, patient states that she may have been exposed to shrimp, she states she felt her throat tighten a little bit, her eyes got little puffy and watery as well, severity was moderate, lasting a few minutes self resolving, without any intervention, she has allergies aggravated by shrimp, she currently does not have an EpiPen, no fevers no chills no shortness of breath patient feels better Allergies: Coded Allergies: Shrimp (Verified Allergy, Intermediate, Itching, 09/20/12) PENICILLINS (Verified Adverse Reaction, Intermediate, Itching, 05/29/13) FACIAL SWELLING Patient History Past Medical History: see triage record Last Menstrual Period: na Now: No Reviewed Nursing Documentation: PMH: Agreed; PSxH: Agreed Nursing Documentation-PMH Hx Gastrointestinal Problems: No - amennorhea Review of Systems All Other Systems: negative except mentioned in HPI Physical Exam Vital Signs Date Time Temp Pulse Resp B/P (MAP) Pulse Ox O2 Delivery O2 Flow Rate FiO2 03/25/19 22:55 98.1 61 16 127/83 (98) 98 Room Air Sp02 EP Interpretation: reviewed, normal General Appearance: well appearing, no apparent distress, alert Head: normocephalic, atraumatic Eyes: bilateral eye PERRL, bilateral eye EOMI ENT: uvula midline, moist mucus membranes Neck: supple, thyroid normal, supple/symm/no masses Respiratory: lungs clear, no respiratory distress, no retraction, no accessory muscle use Cardiovascular #1: normal peripheral pulses, regular rate, rhythm, no edema, no gallop, no murmur Gastrointestinal: non tender, soft, no guarding, no rebound Musculoskeletal: normal inspection Neurologic: alert, oriented x3 Psychiatric: mood/affect normal Skin: no rash, warm/dry Medical Decision Making Diagnostic Impression: Primary Impression: Allergic reaction Qualified Codes: T78.40XA - Allergy, unspecified, initial encounter ER Course 28-year-old female presents with an allergic reaction, no signs or symptoms of anaphylaxis, no acute nausea vomiting, throat is patent, patient is tolerating her secretions, no wheezing on exam Will provide patient with famotidine, Decadron, Benadryl, counseled patient that she needs an EpiPen patient often also not to have a test aware of the risks and benefits, disposition home with return precautions follow-up with PCP Last Vital Signs Date Time Temp Pulse Resp B/P (MAP) Pulse Ox O2 Delivery O2 Flow Rate FiO2 03/25/19 22:55 98.1 61 16 127/83 (98) 98 Room Air Disposition: HOME, SELF-CARE Condition: Stable Scripts Epinephrine (Epipen 2-Nicanor) 0.3 Mg/0.3 Ml Auto.injct 0.3 MG IM ONCE PRN for anaphylaxis, #1 EA Prov: Darvin Woodruff MD 03/25/19 Referrals: [facility] Patient Instructions: Allergies, Aytj-ig-Hegi, Anaphylactic Reaction, Easy-to- Read Additional Instructions: The patient was provided with discharge instructions, notified to follow-up with a primary care doctor and or specialist in the next 24-48 hours, and to return to the ED if they have worsening of their symptoms. Please note that this report is being documented using [employer] technology. This can lead to erroneous entry secondary to incorrect interpretation by the dictating instrument. Darvin Woodruff MD Mar 25, 2019 23:11
[2019-03-25 23:30] VITALS: BP 127/83
--- NOTE | 2019-03-25 23:30 | NUR ---
ED Nurse Note: Pt cleared by ERMD for discharge. DC instructions/prescription was given and explained to pt and verbalized understanding of teachings. All medical deviecs such as ID band removed. Pt is AAO x4, ambulatory and left with all personal belongings.
== END 2019-03-25 23:30 | disposition home or self-care (01) ==
LOC: EMR 23:26
DX: T78.40XA Allergy, unspecified, initial encounter (principal); X58.XXXA Exposure to other specified factors, initial encounter; Y92.9 Unspecified place or not applicable; Z88.0 Allergy status to penicillin; Z91.013 Allergy to seafood
CPT/HCPCS: 81025; J8540; Z7502; 99283